=== PATIENT | female | born 1990 | race African-American/Black ===

== ENCOUNTER → 2016-07-05 14:40 | Emergency (ER) | payer OTHER ==
[~2016-07-05 14:40] MED LIST: CLARITIN10 MG PO; IBUPROFEN PO; NO MEDICATIONS; PHENERGAN SUPP25 MG PR; PHENERGAN25 MG PO; PRENATAL1 TA1 PO; SYNTHROID PO; ZOFRAN ODT4 MG PO
== END | disposition left against medical advice (07) ==
LOC: CED 14:40
DX: Z53.21 Procedure and treatment not carried out due to patient leaving prior to being seen by health care provider (principal)

== ENCOUNTER 2016-08-05 13:20 | Emergency (ER) | payer OTHER ==
[2016-08-05 16:41] LABS: BASOPHIL# 0.1 X10e3 (0-0.3); BASOPHIL% 0.8 % (0-2.5); EOSINOPHIL% 0.3 % (0.0-7.0); HEMATOCRIT 44.6 % (35.0-45.0); HEMOGLOBIN 14.9 gm/dL (12.0-16.0); LYMPHOCYTE# 1.7 X10e3 (1.0-3.5); LYMPHOCYTE% 24.2 % (17.0-45.0); MEAN CELL VOLUME 78.1 FL (83-96); MEAN CORPUSCULAR HGB CONC 33.3 g/dL (30-36); MEAN PLATELET VOLUME 8.4 FL (6.5-11.5); MONOCYTE# 0.8 X10e3 (0-1.0); NEUTROPHIL# 4.4 X10e3 (1.5-7.1); NEUTROPHIL% 63.7 % (40-75); PLATELET COUNT 353 X10e3 (140-420); RED BLOOD COUNT 5.71 X10e (3.90-5.30); RED CELL DISTRIBUTION WIDTH 13.8 % (11.0-15.5); WHITE BLOOD COUNT 6.9 X10e3 (4.0-10.5)
[2016-08-05 16:42] LABS: DIFF IND NO
[2016-08-05 17:20] LABS: ALBUMIN SERUM 4.2 g/dL (3.5-5.0); BILIRUBIN, DIRECT 0.1 mg/dL (0.0-0.2); BILIRUBIN,INDIRECT 0.3 mg/dL (0.0-0.9); BILIRUBIN,TOTAL 0.4 mg/dL (0.2-2.0); BUN/CREATININE RATIO 8.57; CALCIUM SERUM 9.7 mg/dL (8.4-10.2); CREATININE SERUM 0.7 mg/dL (0.6-1.4); GLOM FILT RATE Estimated 139.6 mL/min (>60); POTASSIUM 3.6 mmol/L (3.5-5.1); PROTEIN TOTAL SERUM 7.6 g/dL (6.0-8.3)
[2016-08-05 18:32] LABS: URINE SOURCE CLEAN CATCH
[2016-08-05 18:38] LABS: URINE APPEARANCE CLEAR; URINE BILIRUBIN NEG (NEG); URINE BLOOD NEG (NEG); URINE COLOR YELLOW; URINE GLUCOSE NEG (NEG); URINE KETONE 3+ (NEG); URINE LEUKOCYTE ESTERASE NEG (NEG); URINE NITRATE NEG (NEG); URINE PH 5.5 (5-8); URINE PROTEIN NEG (NEG)
[2016-08-05 18:42] LABS: CULTURE INDICATED? NO
== END 2016-08-05 20:55 | disposition home or self-care (01) ==
LOC: CED 13:20
PROVIDERS: Emergency Medicine
DX: O21.0 Mild hyperemesis gravidarum (principal); R11.0 Nausea; Z91.040 Latex allergy status
CPT/HCPCS: 36415; 80048; 80076; 81003; 84702; 85025; 96361; 96374; 99284; J2550